=== PATIENT | female | born 1955 | race Caucasian/White ===

== ENCOUNTER 2019-07-04 07:05 | Emergency (ER) | payer OTHER ==
[2019-07-04 07:18] VITALS: BP 146/83
--- NOTE | 2019-07-04 07:29 | UC ---
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 Over the course of the day had swelling and discomfort, removed her piercings, but swelling persisted. Took benadryl x1 yesterday. This morning, has increased tenderness and swelling and comes for assessment. No fever. Did not see the insect which stung her. - History of Current Complaint Chief Complaint: UCSkin Time Seen by Provider: 07/04/19 07:16 Stated Complaint: INSECT BITE Hx Obtained From: Patient ?: No Onset/Duration: Sudden Onset Skin Exposure Onset/Duration: Hours Ago - 20 Onset Severity: Mild Current Severity: Mild Pain Intensity: 1 Location: Discrete - posterior left pinna Aggravating Factor(s): Touch Alleviating Factor(s): Antihistamines, Cold Compresses Associated Signs & Symptoms: Positive: Negative Related History: Insect Bite/Sting - Allergy/Home Medications Allergies/Adverse Reactions: Allergies Allergy/AdvReac Type Severity Reaction Status Date / Time No Known Allergies Allergy Verified 07/04/19 07:11 PMH/Surg Hx/FS Hx/Imm Hx Cardiovascular History: Other - tendency to tachycardia, on atenolol Psychological History: Anxiety - heart rate tends to increase with anxiety - Surgical History Surgical History: Yes Surgery Procedure, Year, and Place: open heart for mitral valve prolapse - Family History Known Family History: Positive: Other - father living, has lymphoma - Social History Occupation: Employed Full-time Lives: Alone Alcohol Use: Occasionally Substance Use Type: None Smoking Status (MU): Never Smoked Tobacco Have You Smoked in the Last Year: No Review of Systems All Other Systems Reviewed And Are Negative: Yes Constitutional: Positive: Negative ENT: Negative: Sore Throat, Sinus Congestion Respiratory: Negative: Shortness Of Breath, Cough Cardiovascular: Positive: Palpitations, Other - BP a little high last week at cardiology visit. Has f/u with Dr. Morrison next week--BP usually lower there Psychological: Positive: Anxious Is Patient Immunocompromised?: No Physical Exam Triage Information Reviewed: Yes Appearance: Well-Appearing, Pain Distress - minimal Vital Signs: Initial Vital Signs Temp 98.5 F 07/04/19 07:14 Pulse 77 07/04/19 07:14 Resp 18 07/04/19 07:14 BP 146/83 07/04/19 07:14 Pulse Ox 97 07/04/19 07:14 Eyes: Positive: Conjunctiva Clear ENT: Positive: Pharynx normal, TMs normal Respiratory: Positive: Lungs clear, Normal breath sounds Cardiovascular: Positive: RRR, No Murmur Skin Exam: Other - posterior left ear lobe with erythema and induration. Erythema extends about 2 cm posterior to ear. No pre- or posterior auricular adenopathy. Course/Dx - Course Course Of Treatment: Continue oral and topical benadryl to decrease itch and swelling. given increase in tenderness and warmth and appearance of ear lobe, will begin cephalexin for suspected cellulitis. - Differential Diagnoses - Skin Complaint Differential Diagnoses: Cellulitis, Other - insect bite - Diagnoses Provider Diagnosis: Cellulitis of earlobe, Insect bite Discharge ED - Sign-Out/Discharge Documenting (check all that apply): Patient Departure All imaging exams completed and their final reports reviewed: No Studies - Discharge Plan Condition: Stable Disposition: HOME Prescriptions: Cephalexin CAP* [Keflex 500 CAP*] 500 mg PO TID #15 cap Patient Education Materials: Cellulitis (ED) Referrals: Jenny Morrison MD [Primary Care Provider] - Additional Instructions: Your blood pressure was elevated to 143/86 today, and you have a follow up scheduled with Dr. Morrison at which time you will have a re-check. Anticipate that the redness and swelling will take 24 to 36 hours to decrease. Return for assessment if you develop increasing fever or swelling. You can continue topical or oral benadryl to treat the swelling. - Billing Disposition and Condition Condition: STABLE Disposition: Home
[2019-07-04] MEDS ORDERED: Cephalexin CAP* 500 MG PO ONE (07:30)
== END 2019-07-04 07:45 | disposition home or self-care (01) ==
LOC: UCEAST 07:05
DX: S00.462A Insect bite (nonvenomous) of left ear, initial encounter (principal); H60.12 Cellulitis of left external ear; W57.XXXA Bitten or stung by nonvenomous insect and other nonvenomous arthropods, initial encounter; Y92.9 Unspecified place or not applicable; R00.0 Tachycardia, unspecified
CPT/HCPCS: 99212; A9270-GY; G0463